=== PATIENT | female | born 1975 | race American Indian/Alaskan Native ===

== ENCOUNTER 2024-09-08 11:00 | Outpatient (RCR) | payer OTHER, SELFPAY ==
--- NOTE | 2024-08-28 11:49 | PTNOTE_ITS ---
PT OP Initial Eval Patient Information Outpatient Physical Therapy Treatment Date: 08/28/24 Visit Reasons: Lumbar spine/Left hip pain Medical Diagnosis: M54.50; M25.552 Treatment Dx #1: Back Pain Treatment Dx #2: Hip Pain Start of Care: 08/28/24 Smoking Status Smoking Status: Never smoker Initial Assessment Subjective: Ptis a 49 y/o female reports of chronic back and hip pain (4/10) worsening in the past few months. Pt mention she was recently diagnosed with ankylosing spondylitis. Pt mention medication adjustment lately has really help some of her pain and limitation. Pt has limitation with sitting, standing, chores, self care, working, walking, and performing recreational activities. Objective: L/S AROM: all motions are limited to 50% towards end range except flexion Hip PROM: all motions are WFL except IR Hip MMTs: grossly 3/5 Special Test (+) quinones Assessment: Pt demonstrate L/S mobility deficits with pain leading to difficulty with ADLs. Pt will attempt physical therapy if pain persist Pt will be refer back to provider for further consultation. Short Term and Retirement Goals 1) Increase L/S AROM WFL in 6 wks to be able to perform chores 2) Decrease back pain to 2/10 in 6 wks to be able to sit and stand more than 30 mins 3) Increase core strength WFL in 6 wks to be able to perform recreational activities 4) Increase hip MMTs grossly to 4-/5 in 6 wks to be able to walk more than 30 mins 5) Indep with HEP Treatment Plan 1) Manual Therapy 2) Therapeutic Activities 3) Therapeutic Exercises 4) Modalities (ice, heat) Frequency and Duration: 2 x wk for 6 wks Certification Dates: 08/28/24 to 11/26/24 Procedure Charges OP PT Eval Mod Complex 30 minutes: Yes
--- NOTE | 2024-09-01 12:57 | PT.ODAYNRPT ---
PT Outpatient Daily Note OP Daily Note Outpatient Physical Therapy Treatment Date: 09/01/24 Visit Reasons: Lumbar spine/Left hip pain Subjective: Pt's back feels okay. Notice some stiffness and pain intermittently. Objective: Please see flow chart for list of ther ex performed Assessment: supine heat helped patient tolerate exercises. Pt require HOB to be prop to assume supine position Plan: Continue with PT Length of Time (minutes) of Treatment: 30 Minutes Procedure Charges Therapeutic Exercise 30 minutes: Yes
--- NOTE | 2024-09-08 11:38 | PT.ODAYNRPT ---
PT Outpatient Daily Note OP Daily Note Outpatient Physical Therapy Treatment Date: 09/08/24 Visit Reasons: Lumbar spine/Left hip pain Subjective: Pt c/o LBP. Objective: Please see flow sheet for ther ex list. Assessment: Interventions completed with c/o discomfort. Plan: Continue with POC. Length of Time (minutes) of Treatment: 30 Minutes Procedure Charges Therapeutic Exercise 30 minutes: Yes
--- NOTE | 2024-10-13 12:17 | PT.ODS1RPT ---
PT OP Progress/Discharge Note Date of Service: 10/13/24 Progress Note/DC Note Progress Note/Discharge Note: DC Note Patient Information Visit Reasons: Lumbar spine/Left hip pain Service Discharge Date: 10/13/24 Status Assessment: Pt has been seen for 3 visits (eval + 2 visits). Pt last treated on 09/08/24 and came in today's session and reporting of more pain. Pt recently completed back MRI and hip imaging. Pt will like to stop physical therapy at this time and consult with provider for possible neurosurgeon consult. Pt d/c per request and did not meet set goals in therapy; thank you for your referrals.
== END 2024-09-22 23:59 | disposition home or self-care (01) ==
LOC: CPTX 11:00
PROVIDERS: PCP Nurse Practitioner Family; Referring Provider Nurse Practitioner Family; Visit Provider Nurse Practitioner Family
DX: M54.50 Low back pain, unspecified (principal); M25.552 Pain in left hip; R26.2 Difficulty in walking, not elsewhere classified; M45.9 Ankylosing spondylitis of unspecified sites in spine
CPT/HCPCS: 97110; 97162

== ENCOUNTER → 2024-10-06 | Outpatient (CLI) | payer OTHER, SELFPAY ==
--- NOTE | 2024-10-06 14:49 | XR_ITS ---
Examination: Bilateral hips, AP pelvis, 5 views Technique: AP, lateral views both hips, AP pelvis, 5 views Exam date and time: October 06, 2024 1445 hours INDICATIONS: Bilateral hip pain beginning one year ago. FINDINGS: Moderate osteopenia Mild narrowing right and left hip joints No hip or pelvic fracture No avascular necrosis IMPRESSION: Mild narrowing hip joints
--- NOTE | 2024-10-06 14:49 | XR_ITS ---
Examination: Foot bilateral, 6 views Technique: AP, oblique, lateral views each foot total 6 views Date and time of exam: October 06, 2024 1455 hours INDICATIONS: Bilateral foot pain beginning 3 months ago. FINDINGS: Moderate osteopenia No fracture or dislocation involving either foot No cortical bone destruction or opaque foreign bodies No significant pes planus IMPRESSION: No fracture, dislocation or significant arthritic change involving either foot
== END | disposition home or self-care (01) ==
PROVIDERS: PCP Physician Assistant; Referring Provider Nurse Practitioner Family; Visit Provider Nurse Practitioner Family
DX: M79.672 Pain in left foot (principal); M79.671 Pain in right foot; M25.852 Other specified joint disorders, left hip; M25.851 Other specified joint disorders, right hip
CPT/HCPCS: 73522; 73630

== ENCOUNTER → 2024-10-12 | Outpatient (CLI) | payer OTHER, SELFPAY ==
--- NOTE | 2024-10-12 16:30 | XR_ITS ---
Examination: MRI lumbar spine without contrast Date and time of exam: October 12, 2024 1723 hours INDICATIONS: Low back pain 26 years, radiating down the legs Technique: Multiple MRI axial and sagittal sections lumbar spine. Sagittal T2-weighted images, TR 3500, TE 118 T1 weighted transverse sections, TR 688 T8.5, T2-weighted sagittal sections T1 weighted sagittal sections TR 621, TE 30 T2 axial sections, TR 4, 190, TE 84. Findings: Adequate alignment lumbar vertebral bodies No lumbar fracture Normal marrow signal lumbar vertebral bodies Disc desiccation L4-L5, L5-S1 Mild disc narrowing posteriorly L4-L5, L5-S1 No spondylolisthesis L5-S1 5 mm central lumbar disc bulge contiguous with the right S1 nerve root L4-L5 partially extruded 5 mm right paracentral disc bulge severely indenting the ventral margin thecal sac More cephalad levels unremarkable IMPRESSION: L5-S1 5 mm central lumbar disc bulge contiguous with the right S1 nerve root L4-L5 partially extruded 5 mm right paracentral disc bulge severely indenting the ventral margin thecal sac
== END | disposition home or self-care (01) ==
LOC: SMRI 10-15 07:34
PROVIDERS: PCP Nurse Practitioner Family; Referring Provider Nurse Practitioner Family; Visit Provider Nurse Practitioner Family
DX: M51.379 Other intervertebral disc degeneration, lumbosacral region without mention of lumbar back pain or lower extremity pain (principal); M51.369 Other intervertebral disc degeneration, lumbar region without mention of lumbar back pain or lower extremity pain
CPT/HCPCS: 72148

== ENCOUNTER 2024-10-13 11:02 | Outpatient (RCR) | payer OTHER, SELFPAY | END 2024-10-23 23:59 | disposition home or self-care (01) | LOC: CPTX 11:02 | PROVIDERS: PCP Nurse Practitioner Family; Referring Provider Nurse Practitioner Family; Visit Provider Nurse Practitioner Family | DX: Z53.9 Procedure and treatment not carried out, unspecified reason (principal) ==

== ENCOUNTER → 2024-12-26 | Outpatient (CLI) | payer OTHER, SELFPAY ==
--- NOTE | 2024-12-26 08:30 | XR_ITS ---
Examination: MRI sacrum without contrast Date and time of exam: December 26, 2024, 0822 hrs. Indications: Diagnosis sacroiliitis, lower back sacral hip and groin pain one year Technique: Multiple MRI axial and sagittal sections lumbar spine. Sagittal T2-weighted images, TR 3500, TE 118 T1 weighted transverse sections, TR 688 T8.5, T2-weighted sagittal sections T1 weighted sagittal sections TR 621, TE 30 T2 axial sections, TR 4, 190, TE 84. Findings: Mild bilateral sacroiliitis Satisfactory alignment sacrococcygeal segments Disc desiccation of the lower 2 lumbar levels L4-L5 4 mm central lumbar disc bulge No presacral edema or mass Negative for osteomyelitis No occult fracture Urinary bladder intact Impression: Mild bilateral sacroiliitis
== END | disposition home or self-care (01) ==
LOC: SMRI 08:04
PROVIDERS: PCP Physician Assistant; Referring Provider Nurse Practitioner Family; Visit Provider Nurse Practitioner Family
DX: M46.1 Sacroiliitis, not elsewhere classified (principal)
CPT/HCPCS: 72195

== ENCOUNTER → 2025-01-01 | Outpatient (CLI) | payer OTHER, SELFPAY ==
--- NOTE | 2025-01-01 15:45 | XR_ITS ---
Examination: Pelvic ultrasound, transabdominal, complete Technique: Transabdominal ultrasound of the pelvis performed using grayscale imaging Date and time of exam: January 01, 2025 at 1610 hrs. Indications: Right upper abdominal pain left upper abdominal pain, pelvic pain months Findings: Absent uterus Right ovary obscured by bowel gas Left ovary 1.9 x 1.5 x 1.7 cm arterial flow No fluid in the cul-de-sac Impression: Limited study Left ovary visualized which appears unremarkable
--- NOTE | 2025-01-01 15:45 | XR_ITS ---
Examination: Abdomen sonogram, complete Date and time of exam: January 01, 2025. 1537 hrs. Indications: Right upper abdominal pain left lower abdominal pain beginning 3 months ago Technique: Multiple real-time grayscale transabdominal sonographic images of the abdomen have been obtained. Findings: Absent gallbladder Common bile duct 0.6 cm no stones Pancreatic head 2.8 cm Aorta not enlarged Liver 13.5 cm fatty infiltration no focal liver lesions Normal hepatopedal portal venous flow Patent IVC Right kidney 10.9 cm cortex 1.9 cm Left kidney 10.6 cm cortex 2.7 cm 9 mm left renal calculus mid pole Mild right moderate left renal parenchymal scar formation Spleen 8.2 cm Impression: No common bile duct stones Findings liver 9 mm nonobstructing left renal calculus
== END | disposition home or self-care (01) ==
PROVIDERS: PCP Physician Assistant; Referring Provider Colon & Rectal Surgery; Visit Provider Colon & Rectal Surgery
DX: N20.0 Calculus of kidney (principal)
CPT/HCPCS: 76700; 76856

== ENCOUNTER → 2025-04-26 | Outpatient (CLI) | payer OTHER, SELFPAY ==
--- NOTE | 2025-04-26 14:30 | XR_ITS ---
Examination: Bone densitometry Date and time of exam:May 16, 2025 1501 hours INDICATIONS: Hysterectomy age 34, family history osteoporosis personal history osteopenia Technique: Lumbar spine and hip total bone mineralization values of an calculated. Peak reference and age match control results have been displayed. Findings: Lumbar spine total bone mineralization is0.928 gm/cm2. This is 1.1 standard deviations below peak reference. This is 0.5 standard deviations below age-matched controls. Hip total bone mineralization is 0.911 gm/cm2 This is 24 standard deviations below peak reference. This is 0.1 standard deviations below age-matched controls Impression: There is osteopenia based on lumbar spine measurements. There is normal mineralization based on hip measurements Lumbar mineralization is increased 1.7% compared with September 11, 2006 Hip mineralization is increase 12.1% compared with September 11, 2006
== END | disposition home or self-care (01) ==
PROVIDERS: PCP Physician Assistant; Referring Provider Nurse Practitioner Family; Visit Provider Nurse Practitioner Family
DX: M85.88 Other specified disorders of bone density and structure, other site (principal); Z82.62 Family history of osteoporosis
CPT/HCPCS: 77080

== ENCOUNTER → 2025-06-04 | Outpatient (CLI) | payer OTHER, SELFPAY ==
--- NOTE | 2025-06-04 15:07 | XR_ITS ---
Examination: Shoulder,right, 3 views Technique: Shoulder AP internal rotation, AP external rotation, Y view shoulder, 3 views Exam date and time :June 04, 2025, 1510 hours INDICATIONS: Right shoulder pain beginning 6 months ago. FINDINGS: Mild narrowing glenohumeral joint No shoulder fracture or dislocation IMPRESSION: No shoulder fracture or dislocation
== END | disposition home or self-care (01) ==
PROVIDERS: PCP Physician Assistant; Referring Provider Nurse Practitioner Family; Visit Provider Nurse Practitioner Family
DX: M25.511 Pain in right shoulder (principal)
CPT/HCPCS: 73030